=== PATIENT | male | born 1985 | race African-American/Black ===

== ENCOUNTER 2018-08-30 17:59 | Inpatient (IN) | payer MEDICAID ==
[2018-08-30] MEDS ORDERED: Sodium Chloride 0.9% 900 ML IV ONE (18:10)
[2018-08-30] MEDS ORDERED: Sodium Chloride 0.9% 1,000 ML IV ONE ×2 (18:10→18:58)
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
[2018-08-30] MEDS ORDERED: Sodium Chloride 0.9% 1,000 ML IV SCH ×2 (18:15→23:00)
[2018-08-30] MEDS ORDERED: Insulin Regular, Human 100 Units/ML 3 ML Vial IVPUSH ONE (18:57)
[2018-08-30] MEDS ORDERED: Lactated Ringers 1,000 ML IV ONE ×2 (19:32)
[2018-08-30] MEDS ORDERED: Docusate Sodium 100 MG Cap PO PRN (22:09)
[2018-08-30] MEDS ORDERED: Temazepam 15 MG Cap PO PRN (22:09)
[2018-08-30] MEDS ORDERED: Acetaminophen/HYDROcodone 325-5 MG Tab PO PRN (22:09)
[2018-08-30] MEDS ORDERED: Ondansetron 4 MG/2 ML SDV IV PRN (22:09)
[2018-08-30] MEDS ORDERED: HYDROmorphone 1 MG/ML Syringe IVPUSH PRN (22:09)
[2018-08-30] MEDS ORDERED: Polyethylene Glycol 3350 Powder 17 GM Packet PO PRN (22:09)
[2018-08-30] MEDS ORDERED: Metoprolol Tartrate 5 MG/5 ML SDV IVPUSH PRN (22:09)
[2018-08-30] MEDS ORDERED: Albuterol/Ipratropium 3.0-0.5 MG/3 ML Neb Soln NEB PRN (22:09)
[2018-08-30] MEDS ORDERED: Acetaminophen 325 MG Tab PO PRN (22:09)
[2018-08-30] MEDS ORDERED: hydrALAZINE 20 MG/ML SDV IVPUSH PRN (22:09)
[2018-08-30] MEDS ORDERED: Bisacodyl 5 MG Tab PO PRN (22:09)
[2018-08-30] MEDS ORDERED: LORazepam 2 MG/ML SDV IVPUSH PRN (22:09)
[2018-08-30] MEDS ORDERED: Magnesium Oxide 400 MG Tab PO ONE (23:00)
[2018-08-30 23:17] LABS: VITAMIN D,25-HYDROXY 8.1 ng/ml (30.0-100.0)
--- NOTE | 2018-08-30 23:21 | PCM.SN ---
- Free Text/Narrative Note: Patient briefly seen and examined with significant other at bedside. He appears to be comfortable and in no acute distress. His AG so far has improve to 26 from 30. He is alert and awake.
[2018-08-31] MEDS ORDERED: Dextrose 5%-0.9% NaCl 1,000 ML IV SCH (01:15)
[2018-08-31] MEDS ORDERED: Insulin Glarg,Human.Rec.Analog 100 UNIT/ML ML SUBCUT ONE (04:15)
--- NOTE | 2018-08-31 06:15 | CR ---
Chest: Frontal view of the chest was obtained. Comparison: No prior chest x-ray. Heart size and mediastinum are normal. Lungs are clear. Bony structures are grossly intact. Impression: 1. Nothing acute is seen on frontal chest x-ray. Diagnostic code #1
--- NOTE | 2018-08-31 06:31 | PCM.HP ---
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 Screen (YZHOZM=224) Ur Tricyclics Screen (LQGUSH=708) Ur Phencyclidine Scrn (CUTOFF=25) Ur Amphetamine Screen (JPILHE=172) U Methamphetamines Scrn (EDHRBG=808) U Benzodiazepines Scrn (IHBCHU=458) U Cocaine Metab Screen (CALDIG=504) U Marijuana (THC) Screen (CUTOFF=50) Ethyl Alcohol (0.00) gm% Ketones (0.0-0.3) mM 08/31/18 08/31/18 08/31/18 Range/Units 03:05 04:25 05:17 WBC (4.23-9.07) K/mm3 RBC (4.63-6.08) M/mm3 Hgb (13.7-17.5) gm/L Hct (40.1-51.0) % MCV (79.0-92.2) fl MCH (25.7-32.2) pg MCHC (32.2-35.5) g/dl RDW Std Deviation (35.1-43.9) fL Plt Count (163-337) K/mm3 MPV (9.4-12.3) fl Neutrophils % (Manual) (40-60) % Band Neutrophils % (0-10) % Lymphocytes % (Manual) (20-40) % Atypical Lymphs % % Monocytes % (Manual) (2-10) % Eosinophils % (Manual) (0.8-7.0) % Basophils % (Manual) (0.2-1.2) Platelet Estimate RBC Morph Comment Sodium 137 (136-145) mEq/L Potassium 3.2 L (3.5-5.1) mEq/L Chloride 105 (98-107) mEq/L Carbon Dioxide 17 L (21-32) mEq/L Anion Gap 18.2 H (5-15) BUN 11 (7-18) mg/dL Creatinine 1.0 (0.7-1.3) mg/dL Est Cr Clr Drug Dosing 95.70 mL/min Estimated GFR (MDRD) > 60 (>60) mL/min BUN/Creatinine Ratio 11.0 L (14-18) Glucose 208 H (74-106) mg/dL POC Glucose 217 H 166 H (70-105) mg/dL Hemoglobin A1c (4.50-6.20) % Serum Osmolality (280-300) mosm/kg Lactic Acid Calcium 8.7 (8.5-10.1) mg/dL Phosphorus (2.6-4.7) mg/dL Magnesium (1.8-2.4) mg/dl Total Bilirubin (0.2-1.0) mg/dL AST ALT Alkaline Phosphatase (46-116) U/L Troponin I (0.00-0.056) ng/mL C-Reactive Protein (<1.0) mg/dL Total Protein (6.4-8.2) g/dl Albumin (3.4-5.0) g/dl Globulin gm/dL Albumin/Globulin Ratio (1-2) Triglycerides (<150) mg/dL Cholesterol (<200) mg/dL LDL Cholesterol Direct (<100) mg/dL HDL Cholesterol (40-59) mg/dL Lipase (73-393) U/L Vitamin D 25-Hydroxy (30.0-100.0) ng/ml Free T4 (0.76-1.46) ng/dL TSH 3rd Generation (0.358-3.74) uIU/mL Urine Color (Yellow) Urine Appearance (Clear) Urine pH (5.0-8.0) Ur Specific Williamson (1.005-1.030) Urine Protein (Negative) Urine Glucose (UA) (Negative) Urine Ketones (Negative) Urine Occult Blood (Negative) Urine Nitrite (Negative) Urine Bilirubin (Negative) Urine Urobilinogen (0.2-1.0) Ur Leukocyte Esterase (Negative) Urine RBC (0-5) /hpf Urine WBC (0-5) /hpf Ur Epithelial Cells (0-5) /hpf Urine Bacteria (FEW) /hpf Urine Mucus (FEW) /hpf Ur Random Creatinine (30.0-125.0) mg/dL Ur Random Microalbumin (1.3-20.0) mg/L Microalb/Creat Ratio (0-30) mg/g Urine Opiates Screen (SHUQDU=988) Ur Buprenorphine Scrn (CUTOFF=10) Ur Oxycodone Screen (GNO5WD=269) Urine Methadone Screen (LXL9YD=315) Ur Propoxyphene Screen (NBGJAO=274) Ur Barbiturates Screen (FDXHSI=040) Ur Tricyclics Screen (LFYDXF=484) Ur Phencyclidine Scrn (CUTOFF=25) Ur Amphetamine Screen (QIQHJO=331) U Methamphetamines Scrn (IQSYPX=761) U Benzodiazepines Scrn (NEBDGW=161) U Cocaine Metab Screen (VKVBXR=561) U Marijuana (THC) Screen (CUTOFF=50) Ethyl Alcohol (0.00) gm% Ketones (0.0-0.3) mM 08/31/18 Range/Units 06:10 WBC (4.23-9.07) K/mm3 RBC (4.63-6.08) M/mm3 Hgb (13.7-17.5) gm/L Hct (40.1-51.0) % MCV (79.0-92.2) fl MCH (25.7-32.2) pg MCHC (32.2-35.5) g/dl RDW Std Deviation (35.1-43.9) fL Plt Count (163-337) K/mm3 MPV (9.4-12.3) fl Neutrophils % (Manual) (40-60) % Band Neutrophils % (0-10) % Lymphocytes % (Manual) (20-40) % Atypical Lymphs % % Monocytes % (Manual) (2-10) % Eosinophils % (Manual) (0.8-7.0) % Basophils % (Manual) (0.2-1.2) Platelet Estimate RBC Morph Comment Sodium (136-145) mEq/L Potassium (3.5-5.1) mEq/L Chloride (98-107) mEq/L Carbon Dioxide (21-32) mEq/L Anion Gap (5-15) BUN (7-18) mg/dL Creatinine (0.7-1.3) mg/dL Est Cr Clr Drug Dosing mL/min Estimated GFR (MDRD) (>60) mL/min BUN/Creatinine Ratio (14-18) Glucose (74-106) mg/dL POC Glucose 164 H (70-105) mg/dL Hemoglobin A1c (4.50-6.20) % Serum Osmolality (280-300) mosm/kg Lactic Acid Calcium (8.5-10.1) mg/dL Phosphorus (2.6-4.7) mg/dL Magnesium (1.8-2.4) mg/dl Total Bilirubin (0.2-1.0) mg/dL AST ALT Alkaline Phosphatase (46-116) U/L Troponin I (0.00-0.056) ng/mL C-Reactive Protein (<1.0) mg/dL Total Protein (6.4-8.2) g/dl Albumin (3.4-5.0) g/dl Globulin gm/dL Albumin/Globulin Ratio (1-2) Triglycerides (<150) mg/dL Cholesterol (<200) mg/dL LDL Cholesterol Direct (<100) mg/dL HDL Cholesterol (40-59) mg/dL Lipase (73-393) U/L Vitamin D 25-Hydroxy (30.0-100.0) ng/ml Free T4 (0.76-1.46) ng/dL TSH 3rd Generation (0.358-3.74) uIU/mL Urine Color (Yellow) Urine Appearance (Clear) Urine pH (5.0-8.0) Ur Specific Williamson (1.005-1.030) Urine Protein (Negative) Urine Glucose (UA) (Negative) Urine Ketones (Negative) Urine Occult Blood (Negative) Urine Nitrite (Negative) Urine Bilirubin (Negative) Urine Urobilinogen (0.2-1.0) Ur Leukocyte Esterase (Negative) Urine RBC (0-5) /hpf Urine WBC (0-5) /hpf Ur Epithelial Cells (0-5) /hpf Urine Bacteria (FEW) /hpf Urine Mucus (FEW) /hpf Ur Random Creatinine (30.0-125.0) mg/dL Ur Random Microalbumin (1.3-20.0) mg/L Microalb/Creat Ratio (0-30) mg/g Urine Opiates Screen (NSPPTY=053) Ur Buprenorphine Scrn (CUTOFF=10) Ur Oxycodone Screen (HVJ7UR=132) Urine Methadone Screen (QLQ2BV=543) Ur Propoxyphene Screen (BJGVGX=871) Ur Barbiturates Screen (GAKTTE=910) Ur Tricyclics Screen (LQLJWU=799) Ur Phencyclidine Scrn (CUTOFF=25) Ur Amphetamine Screen (IQQQOF=971) U Methamphetamines Scrn (DGUULL=839) U Benzodiazepines Scrn (CRVGZV=470) U Cocaine Metab Screen (RWTORD=910) U Marijuana (THC) Screen (CUTOFF=50) Ethyl Alcohol (0.00) gm% Ketones (0.0-0.3) mM Result Diagrams: 08/30/18 18:25 08/31/18 06:59 - Problem List (1) Ketoacidosis in diabetes mellitus SNOMED Code(s): 063466775 ICD Code: E13.10 - OTH DIABETES MELLITUS WITH KETOACIDOSIS WITHOUT COMA Status: Resolved Priority: High Current Visit: Yes (2) Tobacco use disorder SNOMED Code(s): 646703058 ICD Code: F17.200 - NICOTINE DEPENDENCE, UNSPECIFIED, UNCOMPLICATED Status : Chronic Priority: Medium Current Visit: Yes (3) Chronic alcohol use SNOMED Code(s): 196781 ICD Code: Z72.89 - OTHER PROBLEMS RELATED TO LIFESTYLE Status: Chronic Priority: High Current Visit: Yes (4) 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), managed as type 2 SNOMED Code(s): 045747627 ICD Code: E13.9 - OTHER SPECIFIED DIABETES MELLITUS WITHOUT COMPLICATIONS Status: Acute Priority: High Current Visit: Yes Problem List Initiated/Reviewed/Updated: Yes Orders Last 24hrs: Active Orders 24 hr Category Date Time Status Patient Status [ADT] Routine ADT 08/30/18 21:53 Active Antiembolic Devices [RC] QSHIFT Care 08/30/18 22:10 Active Cardiac Monitoring [RC] CONTINUOUS Care 08/30/18 18:59 Active Glucose [Blood Glucose Check, Bedside] [RC] Q1HR Care 08/30/18 18:57 Active Height and Weight [RC] 04 Care 08/30/18 22:09 Active Intake and Output [RC] 04,16 Care 08/30/18 22:09 Active Oxygen Therapy [RC] PRN Care 08/30/18 22:09 Active RT Aerosol Therapy [RC] ASDIRECTED Care 08/30/18 22:11 Active Up ad Renetta [RC] ASDIRECTED Care 08/30/18 22:09 Active VTE/DVT Education [RC] Care 08/30/18 22:09 Active Consult to Case Management/Medical Center Representative [CONS] Cons 08/30/18 22:09 Active Routine Consult to Diabetic Nurse Specialist [CONS] Routine Cons 08/30/18 22:09 Active Consult to Studio Sales Associate [CONS] Routine Cons 08/30/18 22:09 Active Nothing per Oral Now Diet [DIET] Diet 08/30/18 Dinner Active BASIC METABOLIC PANEL,BMP [CHEM] Routine Lab 08/31/18 07:00 Ordered BLOOD GAS VENOUS [BG] Stat Lab 08/30/18 18:43 Ordered CULTURE BLOOD [BC] Stat Lab 08/30/18 19:34 Received CULTURE BLOOD [BC] Stat Lab 08/30/18 19:43 Received CULTURE URINE [RM] Stat Lab 08/30/18 20:36 Ordered Acetaminophen [Tylenol] Med 08/30/18 22:09 Active 650 mg PO Q4H PRN Acetaminophen/HYDROcodone [[place] 325-5 MG] Med 08/30/18 22:09 Active 1 tab PO Q4H PRN Albuterol/Ipratropium [DuoNeb 3.0-0.5 MG/3 ML] Med 08/30/18 22:09 Active 3 ml NEB Q4H PRN Aspirin Med 08/31/18 09:00 Active 81 mg PO DAILY Bisacodyl [Dulcolax] Med 08/30/18 22:09 Active 5 mg PO DAILY PRN Dextrose 5%-0.9% NaCl [Dextrose 5%-Normal Saline] 1,000 Med 08/31/18 01:15 Active ml IV ASDIRECTED Docusate Sodium [Colace] Med 08/30/18 22:09 Active 100 mg PO BID PRN Docusate Sodium/Sennosides [Senna Plus] Med 08/30/18 22:09 Active 1 tab PO BID PRN HYDROmorphone [Dilaudid] Med 08/30/18 22:09 Active 0.25 mg IVPUSH Q2H PRN Insulin Regular, Human [HumuLIN R] 100 unit Med 08/30/18 23:30 Active Sodium Chloride 0.9% [Normal Saline] 99 ml IV ASDIRECTED LORazepam [Ativan] Med 08/30/18 22:09 Active 2 mg IVPUSH Q4H PRN Lisinopril [Prinivil] Med 08/31/18 09:00 Active 10 mg PO DAILY Metoprolol Tartrate [Lopressor] Med 08/30/18 22:09 Active 5 mg IVPUSH Q4H PRN Nicotine [Habitrol] Med 08/31/18 09:00 Active 21 mg TRDERM DAILY Ondansetron [Zofran] Med 08/30/18 22:09 Active 4 mg IV Q6H PRN Pharmacy to Dose - Magnesium R [Pharmacy to Dose - Med 08/30/18 22:15 Pending Magnesium Replacement] 1 dose .XX ASDIRECTED Pharmacy to Dose - Potassium R [Pharmacy to Dose - Med 08/30/18 22:15 Pending Potassium Replacement] 1 dose .XX ASDIRECTED Polyethylene Glycol 3350 [MiraLAX] Med 08/30/18 22:09 Active 17 gm PO DAILY PRN Remove Patch Med 08/31/18 09:00 Active 1 ea TRDERM DAILY Temazepam [Restoril] Med 08/30/18 22:09 Active 15 mg PO BEDTIME PRN hydrALAZINE [Apresoline] Med 08/30/18 22:09 Active 20 mg IVPUSH Q4H PRN Blood Culture x2 Reflex Set [OM.PC] Stat Oth 08/30/18 18:59 Ordered Sequential Compression Device [OM.PC] Per Unit Routine Oth 08/30/18 22:10 Ordered Resuscitation Status Routine Resus Stat 08/30/18 22:09 Ordered Medication Orders Acetaminophen (Tylenol) 650 mg PO Q4H PRN PRN Reason: Pain (Mild 1-3)/fever Hydrocodone Bitart/Acetaminophen ([place] 325-5 Mg) 1 tab PO Q4H PRN PRN Reason: Pain (moderate 4-6) Albuterol/Ipratropium (Duoneb 3.0-0.5 Mg/3 Ml) 3 ml NEB Q4H PRN PRN Reason: Shortness Of Breath/wheezing Aspirin (Aspirin) 81 mg PO DAILY JUAN Bisacodyl (Dulcolax) 5 mg PO DAILY PRN PRN Reason: Constipation Docusate Sodium (Colace) 100 mg PO BID PRN PRN Reason: Constipation Hydralazine HCl (Apresoline) 20 mg IVPUSH Q4H PRN PRN Reason: Hypertension Hydromorphone HCl (Dilaudid) 0.25 mg IVPUSH Q2H PRN PRN Reason: Pain (severe 7-10) Insulin Human Regular 100 unit (/ Sodium Chloride) 100 mls @ 6 mls/hr IV ASDIRECTED [facility]; Protocol Last Admin: 08/30/18 23:00 Dose: 6 units/hr, 6 mls/hr Dextrose/Sodium Chloride (Dextrose 5%-Normal Saline) 1,000 mls @ 150 mls/hr IV ASDIRECTED [facility] Last Admin: 08/31/18 01:23 Dose: 150 mls/hr Lisinopril (Prinivil) 10 mg PO DAILY JUAN Lorazepam (Ativan) 2 mg IVPUSH Q4H PRN PRN Reason: Seizures Magnesium Sulfate (Pharmacy To Dose - Magnesium Replacement) 1 dose .XX ASDIRECTED [facility] Metoprolol Tartrate (Lopressor) 5 mg IVPUSH Q4H PRN PRN Reason: Tachycardia Miscellaneous Information (Remove Patch) 1 ea TRDERM DAILY [facility] Nicotine (Habitrol) 21 mg TRDERM DAILY [facility] Ondansetron HCl (Zofran) 4 mg IV Q6H PRN PRN Reason: Nausea/Vomiting Polyethylene Glycol (Miralax) 17 gm PO DAILY PRN PRN Reason: Constipation Potassium Chloride (Pharmacy To Dose - Potassium Replacement) 1 dose .XX ASDIRECTED [facility] Senna/Docusate Sodium (Senna Plus) 1 tab PO BID PRN PRN Reason: Constipation Temazepam (Restoril) 15 mg PO BEDTIME PRN PRN Reason: Sleep Last Admin: 08/30/18 23:18 Dose: 15 mg Assessment/Plan Comment:: I/P: Acute: VINAY/New onset diabetic -Presents to ED after being seen at [facility] for leg cramps, low back pain, polydipsia, polyuria. -No known personal or family history of diabetes -Glucose 707 in ED -Urine ketones 11.51 -Given multiple fluid boluses and 9 unites insulin -Started on insulin drip -A1C 9.0 -Serum osmolality 326. -Urine random creatinine 23.3; Urine random microalbumin 306.6; Microalbumin/ creatinine ratio 1315.8 -Lipid panel: Triglycerides 1070, total cholesterol 256, LDL 79, HDL 33. -TSH 0.779. Free T4 0.91 -IV fluids as ordered -NPO until gap closes -IV insulin drip as ordered per protocol -clinical unit educator consult -Studio Sales Associate consult -Blood glucose checks as ordered -Start lisinopril 10mg daily -Start ASA 81mg daily -Serial BMPs as directed Vitamin D Deficiency -Vitamin D 8.1 -Supplement Chronic ETOH use -Reports drinking 20 fireball shots per night -Counseled on importance of decreasing consumption Chronic tobacco use -Reports 1 PPD cigarette use -Nicotine patches -Cessation counseling Chronic: None Plan: Admit to ICU-> downgrade to [facility] He is ambulatory so hold off PT/OT for now Other orders as above Routine AM labs CM/SW for discharge planning DVT prophylaxis: VTE 1, SCDs and ambulate Code status: Full code; PCP: None - will need to establish locally
[2018-08-31] MEDS: Potassium Chloride 20 MEQ Tab.ER PO SCH ×2 (08:25→11:44)
[2018-08-31] MEDS ORDERED: Lisinopril 10 MG Tab PO SCH (09:00)
[2018-08-31] MEDS ORDERED: Cholecalciferol (Vitamin D3) 5,000 UNIT Tab PO SCH (09:00)
[2018-08-31] MEDS ORDERED: Aspirin 81 MG Tab.Chew PO SCH (09:00)
[2018-08-31] MEDS ORDERED: Rosuvastatin 10 MG Tab PO SCH (09:00)
[2018-08-31] MEDS ORDERED: Nicotine 21 MG/24 Hr Patch TRDERM SCH (09:00)
[2018-08-31] MEDS ORDERED: Insulin Glarg,Human.Rec.Analog 100 UNIT/ML ML SUBCUT SCH ×4 (09:01→21:00)
--- NOTE | 2018-08-31 09:46 | PCM.DCSUM1 ---
Discharge Summary - Hospital Course HPI Initial Comments: Darius Alfaro is a 32yo male who presented to our ED after being evaluated at [facility] for leg cramps, low back pain, polydipsia, and polyuria. Symptoms have been present for about 3 weeks and he reports he has been feeling dehydrated and can drink enough fluids. He has no personal or familial history of diabetes. He reports he drinks fireball 20 shots every evening. Denies any other past medical history. He is not taking any medications and denies any other past surgical history. Reports he smokes 1 pack per day and denies any recreational drug use. He has no PCP locally. Reports he has had muscle cramps in his lower legs and does take Advil 4 mg twice a day. Denies any pain or swelling in the ED. 7 out of 10 back pain which he states is dull and achy. This will wax and wane with intensity. He also reports some lower abdominal cramping but denies any dark tarry stools, bloody stools, or diarrhea. In the ED temperature was 98.9 Fahrenheit. Pulse 128. Respirations 18. Blood pressure 158/117. Pulse ox 99%. Labs are obtained: WBC is elevated at 13.74. Hemoglobin 17.4. Hematocrit 47.5. He is normocytic. Platelets are high at 392 ,000. Neutrophils were elevated at 65%. There is no bandemia. Sodium was low at 127. Potassium high at 5.3. Carbon dioxide low at 15. Anion gap is very high at 3.3. BUN is 24. Creatinine 1.4. EGFR is greater than 60. Glucose is very high at 707. Serum osmolality is high at 326. Calcium was high at 11.6. Magnesium is high at 2.6. Alkaline phosphatase is high at 159. Troponin is negative at less than 0.017. CRP is 0.4. Protein is high at 10.2. Albumin 4.8. Ketones are 11.51. A1c is 9.0. Phosphorus is high at 7.0. Ethanol call 0.00. UA is negative however 2+ protein, 2+ glucose, 4+ ketones, 1+ occult blood, and 10-20 WBCs is noted. Urine drug screen is negative. He is given multiple LR fluid boluses and 9 units of IV push insulin. Chest x-rays obtained and shows nothing acute. EKG is obtained showing sinus tachycardia rate of 114 with a normal VA interval and QTC. There is no ST changes noted. Corrected anion gap was noted to be 23 mg/L. He has no past medical history. He is a full code. He has no PCP. He subsequently admitted to the ICU for diabetic ketoacidosis. 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), managed as type 2 SNOMED Code(s): 579184391 ICD Code: E13.9 - OTHER SPECIFIED DIABETES MELLITUS WITHOUT COMPLICATIONS Status: Acute Priority: High (4) Hyperlipemia SNOMED Code(s): 35631446 ICD Code: E78.5 - HYPERLIPIDEMIA, UNSPECIFIED Status: Acute Priority: High Qualifiers: Hyperlipidemia type: unspecified Qualified Code(s): E78.5 - Hyperlipidemia , unspecified - Patient Summary/Data Consults: Consultations 08/30/18 22:09 Consult to Case Management/Lozenge Dough Mixer [CONS] Routine Consult to Diabetic Nurse Specialist [CONS] Routine Consult to Tax Attorney [CONS] Routine Labs Pending at D/C: None Recommended Follow-up Testing/Procedures: Follow-up with PCP within 7-10 days of discharge Hospital Course: I/P: Acute: VINAY/New onset diabetic -Presents to ED after being seen at [facility] for leg cramps, low back pain, polydipsia, polyuria. -No known personal or family history of diabetes -Glucose 707 in ED -Urine ketones 11.51 -Given multiple fluid boluses and 9 unites insulin -Started on insulin drip -A1C 9.0 -Serum osmolality 326. -Urine random creatinine 23.3; Urine random microalbumin 306.6; Microalbumin/ creatinine ratio 1315.8 -Lipid panel: Triglycerides 1070, total cholesterol 256, LDL 79, HDL 33. -TSH 0.779. Free T4 0.91 -IV fluids as ordered -NPO until gap closes -IV insulin drip as ordered per protocol -certified adapted physical educator consult -Tax Attorney consult -Blood glucose checks as ordered -Start lisinopril 10mg daily -Start ASA 81mg daily -Serial BMPs as directed Vitamin D Deficiency -Vitamin D 8.1 -Supplement Chronic ETOH use -Reports drinking 20 fireball shots per night -Counseled on importance of decreasing consumption Chronic tobacco use -Reports 1 PPD cigarette use -Nicotine patches -Cessation counseling Chronic: None Plan: Admit to ICU-> downgrade to [facility] He is ambulatory so hold off PT/OT for now Other orders as above Routine AM labs CM/SW for discharge planning DVT prophylaxis: VTE 1, SCDs and ambulate Code status: Full code; PCP: None - will need to establish locally Darius was admitted to the ICU with new onset diabetes/L ADA. Glucose was 707 in the ED and urine ketones were 11.5 one he was given insulin along with multiple fluid boluses. He did him over with an insulin drip and this was weaned down. Serum osmolality was 326 and A1c was found to be 9.0. He was noted to have random urine creatinine of 23.3 and a urine random microalbumin of 306. TSH was normal. He has very high triglycerides at 1070, however his LDL was normal at 79. LDL is low at 33. Total cholesterol was 256. Anion gap did close and he was started on normal foods. He was able tolerate this well. He was downgraded to med/surg status. He did see our music educator was able to assist him with finding some medications. He also saw our dietitian. We discussed lifestyle changes and he is adamant that he is going to quit drinking. He smokes 1 pack per day of cigarettes but refused tobacco cessation products on discharge. We did discuss that there are options available should he change his mind including a primary care provider and and ND quits. His vitamin D was very low at 8.1 and this was supplemented. He was feeling pretty good prior to discharge. He was advised to establish with a PCP and follow up within one week. He also reportedly has liver issues and should follow up with GI as needed for that. He was started by Dr. Ranada on 81 mg by mouth aspirin daily, 5000 units by mouth vitamin D3 at bedtime, Lantus 25 units subcutaneous twice a day, sliding scale Humalog 4 times a day, 20 mg by mouth daily lisinopril, and 20 mg by mouth daily Crestor. He was instructed to take his blood sugar 4 times a day. He was advised to contact the PCP, walking clinic, or return to our ED should symptoms return or worsen. He will be discharged today. - Patient Instructions Diet: Heart Healthy Diet, Usual Diet as Tolerated, Diabetic Diet, Weight Loss Diet Activity: As Tolerated Driving: May Drive Today Showering/Bathing: May Shower Notify Provider of: Fever, Increased Pain, Nausea and/or Vomiting Other/Special Instructions: - Please take all new medications as directed. - Resume all home medications and routine home activities as tolerated. - Recommend you follow dietary and automotive designer's instructions. - Practice life style modications and stay hydrated. - Cut down alcohol intake. - Check finger glucose 4x/day and show log on follow up appointment with PCP. - Recommend you see GI for further eval of your liver disease. - Call or follow up with your PCP for any questions or concerns after discharge. - Follow up with your PCP in 1 week. - Come back or seek immediate care should your symptoms persist or get worse - Discharge Plan *PRESCRIPTION DRUG MONITORING PROGRAM REVIEWED*: Not Applicable *COPY OF PRESCRIPTION DRUG MONITORING REPORT IN PATIENT ANNIE: Not Applicable Prescriptions/Med Rec: Aspirin 81 mg PO DAILY #30 tab.chew Cholecalciferol (Vitamin D3) [Vitamin D3] 5,000 unit PO BEDTIME #30 tablet Insulin Glargine,Hum.Rec.Anlog [Lantus Solostar] 25 unit SQ BID #1 ml Insulin Lispro [Humalog] See Protocol SQ QID PRN #1 ml PRN Reason: VINAY-DM2 Lisinopril 20 mg PO DAILY #30 tablet Rosuvastatin [Crestor] 20 mg PO DAILY #60 tab Home Medications: Home Meds Aspirin 81 mg PO DAILY #30 tab.chew 08/31/18 [Rx] Cholecalciferol (Vitamin D3) [Vitamin D3] 5,000 unit PO BEDTIME #30 tablet 08/31 [Rx] Insulin Glargine,Hum.Rec.Anlog [Lantus Solostar] 25 unit SQ BID #1 ml 08/31/18 [ Rx] Insulin Lispro [Humalog] See Protocol SQ QID PRN #1 ml 08/31/18 [Rx] Lisinopril 20 mg PO DAILY #30 tablet 08/31/18 [Rx] Rosuvastatin [Crestor] 20 mg PO DAILY #60 tab 08/31/18 [Rx] Oxygen Therapy Mode: Room Air Patient Handouts: Insulin Storage and Care, Insulin Treatment for Diabetes, Diabetes Mellitus and Sick Day Management, How to Avoid Diabetes Mellitus Problems, Steps to Quit Smoking Referrals: PCP,None [Primary Care Provider] - - Discharge Summary/Plan Comment DC Time >30 min.: Yes (45 min) - General Info Date of Service: 08/31/18 Admission Dx/Problem (Free Text: Admission Diagnosis/Problem Admission Diagnosis/Problem Diabetic ketoacidosis Functional Status: Reports: Pain Controlled, Tolerating Diet, Ambulating, Urinating. Denies: New Symptoms - Review of Systems General: Reports: No Symptoms. Denies: Fever, Weakness, Fatigue, Malaise, Chills HEENT: Reports: No Symptoms. Denies: Headaches, Sore Throat Pulmonary: Reports: No Symptoms. Denies: Shortness of Breath, Pleuritic Chest Pain, Cough, Sputum, Wheezing Cardiovascular: Reports: No Symptoms. Denies: Chest Pain, Palpitations, Dyspnea on Exertion, Orthopnea Gastrointestinal: Reports: No Symptoms, Abdominal Pain (mild epigastric and lower quadrant ). Denies: Constipation, Diarrhea, Nausea, Vomiting Genitourinary: Reports: No Symptoms. Denies: Pain Musculoskeletal: Reports: No Symptoms Skin: Reports: No Symptoms Neurological: Reports: No Symptoms. Denies: Confusion Psychiatric: Reports: No Symptoms - Patient Data Vitals - Most Recent: Last Vital Signs Temp 97.7 F 08/31/18 08:00 Pulse 97 08/31/18 04:00 Resp 18 08/31/18 08:00 BP 136/102 H 08/31/18 08:25 Pulse Ox 96 08/31/18 08:00 Weight - Most Recent: 190 lb 14.4 oz I&O - Last 24 hours: Intake & Output 08/30/18 08/31/18 08/31/18 22:59 06:59 14:59 Intake Total 7519 Output Total 700 Balance 6819 Lab Results - Last 24 hrs: Laboratory Results - last 24 hr 03/08/30/18 08/30/18 Range/Units 18:25 18:25 18:25 WBC 13.74 H (4.23-9.07) K/mm3 RBC 5.74 (4.63-6.08) M/mm3 Hgb 17.4 (13.7-17.5) gm/L Hct 47.5 (40.1-51.0) % MCV 82.8 (79.0-92.2) fl MCH 30.3 (25.7-32.2) pg MCHC 36.6 H (32.2-35.5) g/dl RDW Std Deviation 39.0 (35.1-43.9) fL Plt Count 392 H (163-337) K/mm3 MPV 10.5 (9.4-12.3) fl Neutrophils % (Manual) 65 H (40-60) % Band Neutrophils % 0 (0-10) % Lymphocytes % (Manual) 30 (20-40) % Atypical Lymphs % 0 % Monocytes % (Manual) 5 (2-10) % Eosinophils % (Manual) 0 L (0.8-7.0) % Basophils % (Manual) 0 L (0.2-1.2) Platelet Estimate Adequate RBC Morph Comment Normal Sodium 127 L (136-145) mEq/L Potassium 5.3 H (3.5-5.1) mEq/L Chloride 87 L (98-107) mEq/L Carbon Dioxide 15 L (21-32) mEq/L Anion Gap 30.3 H (5-15) BUN 24 H (7-18) mg/dL Creatinine 1.4 H (0.7-1.3) mg/dL Est Cr Clr Drug Dosing 70.82 mL/min Estimated GFR (MDRD) > 60 (>60) mL/min BUN/Creatinine Ratio 17.1 (14-18) Glucose 707 H* (74-106) mg/dL POC Glucose (70-105) mg/dL Hemoglobin A1c (4.50-6.20) % Serum Osmolality 326 H (280-300) mosm/kg Lactic Acid Calcium 11.6 H (8.5-10.1) mg/dL Phosphorus (2.6-4.7) mg/dL Magnesium 2.6 H (1.8-2.4) mg/dl Total Bilirubin 0.9 (0.2-1.0) mg/dL AST TNP ALT TNP Alkaline Phosphatase 159 H (46-116) U/L Troponin I < 0.017 (0.00-0.056) ng/mL C-Reactive Protein 0.4 (<1.0) mg/dL Total Protein 10.2 H (6.4-8.2) g/dl Albumin 4.8 (3.4-5.0) g/dl Globulin 5.4 gm/dL Albumin/Globulin Ratio 0.9 L (1-2) Triglycerides (<150) mg/dL Cholesterol (<200) mg/dL LDL Cholesterol Direct (<100) mg/dL HDL Cholesterol (40-59) mg/dL Lipase (73-393) U/L Vitamin D 25-Hydroxy (30.0-100.0) ng/ml Free T4 (0.76-1.46) ng/dL TSH 3rd Generation (0.358-3.74) uIU/mL Urine Color (Yellow) Urine Appearance (Clear) Urine pH (5.0-8.0) Ur Specific [place] (1.005-1.030) Urine Protein (Negative) Urine Glucose (UA) (Negative) Urine Ketones (Negative) Urine Occult Blood (Negative) Urine Nitrite (Negative) Urine Bilirubin (Negative) Urine Urobilinogen (0.2-1.0) Ur Leukocyte Esterase (Negative) Urine RBC (0-5) /hpf Urine WBC (0-5) /hpf Ur Epithelial Cells (0-5) /hpf Urine Bacteria (FEW) /hpf Urine Mucus (FEW) /hpf Ur Random Creatinine (30.0-125.0) mg/dL Ur Random Microalbumin (1.3-20.0) mg/L Microalb/Creat Ratio (0-30) mg/g Urine Opiates Screen (ETVSMK=454) Ur Buprenorphine Scrn (CUTOFF=10) Ur Oxycodone Screen (KQE6TS=613) Urine Methadone Screen (MKM9VM=709) Ur Propoxyphene Screen (LKHYCR=689) Ur Barbiturates Screen (ZKJAEG=102) Ur Tricyclics Screen (KGCLNF=244) Ur Phencyclidine Scrn (CUTOFF=25) Ur Amphetamine Screen (FOETUQ=486) U Methamphetamines Scrn (SHOSNK=917) U Benzodiazepines Scrn (DURDSX=461) U Cocaine Metab Screen (OIHUZQ=982) U Marijuana (THC) Screen (CUTOFF=50) Ethyl Alcohol (0.00) gm% Ketones 11.51 (0.0-0.3) mM 08/30/18 08/30/18 08/30/18 Range/Units 18:25 18:25 18:25 WBC (4.23-9.07) K/mm3 RBC (4.63-6.08) M/mm3 Hgb (13.7-17.5) gm/L Hct (40.1-51.0) % MCV (79.0-92.2) fl MCH (25.7-32.2) pg MCHC (32.2-35.5) g/dl RDW Std Deviation (35.1-43.9) fL Plt Count (163-337) K/mm3 MPV (9.4-12.3) fl Neutrophils % (Manual) (40-60) % Band Neutrophils % (0-10) % Lymphocytes % (Manual) (20-40) % Atypical Lymphs % % Monocytes % (Manual) (2-10) % Eosinophils % (Manual) (0.8-7.0) % Basophils % (Manual) (0.2-1.2) Platelet Estimate RBC Morph Comment Sodium (136-145) mEq/L Potassium (3.5-5.1) mEq/L Chloride (98-107) mEq/L Carbon Dioxide (21-32) mEq/L Anion Gap (5-15) BUN (7-18) mg/dL Creatinine (0.7-1.3) mg/dL Est Cr Clr Drug Dosing mL/min Estimated GFR (MDRD) (>60) mL/min BUN/Creatinine Ratio (14-18) Glucose (74-106) mg/dL POC Glucose (70-105) mg/dL Hemoglobin A1c 9.00 H (4.50-6.20) % Serum Osmolality (280-300) mosm/kg Lactic Acid Calcium (8.5-10.1) mg/dL Phosphorus 7.0 H (2.6-4.7) mg/dL Magnesium (1.8-2.4) mg/dl Total Bilirubin (0.2-1.0) mg/dL AST ALT Alkaline Phosphatase (46-116) U/L Troponin I (0.00-0.056) ng/mL C-Reactive Protein (<1.0) mg/dL Total Protein (6.4-8.2) g/dl Albumin (3.4-5.0) g/dl Globulin gm/dL Albumin/Globulin Ratio (1-2) Triglycerides (<150) mg/dL Cholesterol (<200) mg/dL LDL Cholesterol Direct (<100) mg/dL HDL Cholesterol (40-59) mg/dL Lipase 496 H (73-393) U/L Vitamin D 25-Hydroxy (30.0-100.0) ng/ml Free T4 (0.76-1.46) ng/dL TSH 3rd Generation (0.358-3.74) uIU/mL Urine Color (Yellow) Urine Appearance (Clear) Urine pH (5.0-8.0) Ur Specific [place] (1.005-1.030) Urine Protein (Negative) Urine Glucose (UA) (Negative) Urine Ketones (Negative) Urine Occult Blood (Negative) Urine Nitrite (Negative) Urine Bilirubin (Negative) Urine Urobilinogen (0.2-1.0) Ur Leukocyte Esterase (Negative) Urine RBC (0-5) /hpf Urine WBC (0-5) /hpf Ur Epithelial Cells (0-5) /hpf Urine Bacteria (FEW) /hpf Urine Mucus (FEW) /hpf Ur Random Creatinine (30.0-125.0) mg/dL Ur Random Microalbumin (1.3-20.0) mg/L Microalb/Creat Ratio (0-30) mg/g Urine Opiates Screen (XVQPFJ=074) Ur Buprenorphine Scrn (CUTOFF=10) Ur Oxycodone Screen (PCR8OM=916) Urine Methadone Screen (PVX1CQ=344) Ur Propoxyphene Screen (ARNTBF=448) Ur Barbiturates Screen (UGCTEJ=658) Ur Tricyclics Screen (SZHLBG=612) Ur Phencyclidine Scrn (CUTOFF=25) Ur Amphetamine Screen (YSYDUG=386) U Methamphetamines Scrn (VSNFTO=267) U Benzodiazepines Scrn (CMNWHO=217) U Cocaine Metab Screen (ENCSVW=026) U Marijuana (THC) Screen (CUTOFF=50) Ethyl Alcohol (0.00) gm% Ketones (0.0-0.3) mM 08/30/18 08/30/18 08/30/18 Range/Units 18:25 19:05 19:05 WBC (4.23-9.07) K/mm3 RBC (4.63-6.08) M/mm3 Hgb (13.7-17.5) gm/L Hct (40.1-51.0) % MCV (79.0-92.2) fl MCH (25.7-32.2) pg MCHC (32.2-35.5) g/dl RDW Std Deviation (35.1-43.9) fL Plt Count (163-337) K/mm3 MPV (9.4-12.3) fl Neutrophils % (Manual) (40-60) % Band Neutrophils % (0-10) % Lymphocytes % (Manual) (20-40) % Atypical Lymphs % % Monocytes % (Manual) (2-10) % Eosinophils % (Manual) (0.8-7.0) % Basophils % (Manual) (0.2-1.2) Platelet Estimate RBC Morph Comment Sodium (136-145) mEq/L Potassium (3.5-5.1) mEq/L Chloride (98-107) mEq/L Carbon Dioxide (21-32) mEq/L Anion Gap (5-15) BUN (7-18) mg/dL Creatinine (0.7-1.3) mg/dL Est Cr Clr Drug Dosing mL/min Estimated GFR (MDRD) (>60) mL/min BUN/Creatinine Ratio (14-18) Glucose (74-106) mg/dL POC Glucose (70-105) mg/dL Hemoglobin A1c (4.50-6.20) % Serum Osmolality (280-300) mosm/kg Lactic Acid Calcium (8.5-10.1) mg/dL Phosphorus (2.6-4.7) mg/dL Magnesium (1.8-2.4) mg/dl Total Bilirubin (0.2-1.0) mg/dL AST ALT Alkaline Phosphatase (46-116) U/L Troponin I (0.00-0.056) ng/mL C-Reactive Protein (<1.0) mg/dL Total Protein (6.4-8.2) g/dl Albumin (3.4-5.0) g/dl Globulin gm/dL Albumin/Globulin Ratio (1-2) Triglycerides (<150) mg/dL Cholesterol (<200) mg/dL LDL Cholesterol Direct (<100) mg/dL HDL Cholesterol (40-59) mg/dL Lipase (73-393) U/L Vitamin D 25-Hydroxy (30.0-100.0) ng/ml Free T4 (0.76-1.46) ng/dL TSH 3rd Generation (0.358-3.74) uIU/mL Urine Color Light yellow (Yellow) Urine Appearance Clear (Clear) Urine pH 5.5 (5.0-8.0) Ur Specific [place] 1.025 (1.005-1.030) Urine Protein 2+ H (Negative) Urine Glucose (UA) 2+ H (Negative) Urine Ketones 4+ H (Negative) Urine Occult Blood 1+ H (Negative) Urine Nitrite Negative (Negative) Urine Bilirubin Negative (Negative) Urine Urobilinogen 0.2 (0.2-1.0) Ur Leukocyte Esterase Negative (Negative) Urine RBC 0-5 (0-5) /hpf Urine WBC 10-20 H (0-5) /hpf Ur Epithelial Cells 0-5 (0-5) /hpf Urine Bacteria Few (FEW) /hpf Urine Mucus Few (FEW) /hpf Ur Random Creatinine (30.0-125.0) mg/dL Ur Random Microalbumin (1.3-20.0) mg/L Microalb/Creat Ratio (0-30) mg/g Urine Opiates Screen Negative (MIWMSH=970) Ur Buprenorphine Scrn Negative (CUTOFF=10) Ur Oxycodone Screen Negative (UDF0SU=363) Urine Methadone Screen Negative (NVX4WQ=376) Ur Propoxyphene Screen Negative (HSCHJD=383) Ur Barbiturates Screen Negative (HNFEZJ=430) Ur Tricyclics Screen Negative (YHGQEY=829) Ur Phencyclidine Scrn Negative (CUTOFF=25) Ur Amphetamine Screen Negative (MQSFQX=127) U Methamphetamines Scrn Negative (XSBTNO=849) U Benzodiazepines Scrn Negative (IERYZP=025) U Cocaine Metab Screen Negative (GSHIDA=171) U Marijuana (THC) Screen Negative (CUTOFF=50) Ethyl Alcohol 0.00 (0.00) gm% Ketones (0.0-0.3) mM 08/30/18 08/30/18 08/30/18 Range/Units 19:05 19:43 20:15 WBC (4.23-9.07) K/mm3 RBC (4.63-6.08) M/mm3 Hgb (13.7-17.5) gm/L Hct (40.1-51.0) % MCV (79.0-92.2) fl MCH (25.7-32.2) pg MCHC (32.2-35.5) g/dl RDW Std Deviation (35.1-43.9) fL Plt Count (163-337) K/mm3 MPV (9.4-12.3) fl Neutrophils % (Manual) (40-60) % Band Neutrophils % (0-10) % Lymphocytes % (Manual) (20-40) % Atypical Lymphs % % Monocytes % (Manual) (2-10) % Eosinophils % (Manual) (0.8-7.0) % Basophils % (Manual) (0.2-1.2) Platelet Estimate RBC Morph Comment Sodium (136-145) mEq/L Potassium (3.5-5.1) mEq/L Chloride (98-107) mEq/L Carbon Dioxide (21-32) mEq/L Anion Gap (5-15) BUN (7-18) mg/dL Creatinine (0.7-1.3) mg/dL Est Cr Clr Drug Dosing mL/min Estimated GFR (MDRD) (>60) mL/min BUN/Creatinine Ratio (14-18) Glucose 409 H (74-106) mg/dL POC Glucose (70-105) mg/dL Hemoglobin A1c (4.50-6.20) % Serum Osmolality (280-300) mosm/kg Lactic Acid TNP Calcium (8.5-10.1) mg/dL Phosphorus (2.6-4.7) mg/dL Magnesium (1.8-2.4) mg/dl Total Bilirubin (0.2-1.0) mg/dL AST ALT Alkaline Phosphatase (46-116) U/L Troponin I (0.00-0.056) ng/mL C-Reactive Protein (<1.0) mg/dL Total Protein (6.4-8.2) g/dl Albumin (3.4-5.0) g/dl Globulin gm/dL Albumin/Globulin Ratio (1-2) Triglycerides (<150) mg/dL Cholesterol (<200) mg/dL LDL Cholesterol Direct (<100) mg/dL HDL Cholesterol (40-59) mg/dL Lipase (73-393) U/L Vitamin D 25-Hydroxy (30.0-100.0) ng/ml Free T4 (0.76-1.46) ng/dL TSH 3rd Generation (0.358-3.74) uIU/mL Urine Color (Yellow) Urine Appearance (Clear) Urine pH (5.0-8.0) Ur Specific [place] (1.005-1.030) Urine Protein (Negative) Urine Glucose (UA) (Negative) Urine Ketones (Negative) Urine Occult Blood (Negative) Urine Nitrite (Negative) Urine Bilirubin (Negative) Urine Urobilinogen (0.2-1.0) Ur Leukocyte Esterase (Negative) Urine RBC (0-5) /hpf Urine WBC (0-5) /hpf Ur Epithelial Cells (0-5) /hpf Urine Bacteria (FEW) /hpf Urine Mucus (FEW) /hpf Ur Random Creatinine 23.3 L (30.0-125.0) mg/dL Ur Random Microalbumin 306.6 H (1.3-20.0) mg/L Microalb/Creat Ratio 1315.8 H (0-30) mg/g Urine Opiates Screen (WBBNTD=633) Ur Buprenorphine Scrn (CUTOFF=10) Ur Oxycodone Screen (DKF2XT=777) Urine Methadone Screen (DJL3WS=531) Ur Propoxyphene Screen (NYXWBU=705) Ur Barbiturates Screen (ZINIHI=984) Ur Tricyclics Screen (AEDJKE=315) Ur Phencyclidine Scrn (CUTOFF=25) Ur Amphetamine Screen (RMOMET=896) U Methamphetamines Scrn (RXESEP=437) U Benzodiazepines Scrn (YRMQJA=768) U Cocaine Metab Screen (PIWQSC=441) U Marijuana (THC) Screen (CUTOFF=50) Ethyl Alcohol (0.00) gm% Ketones (0.0-0.3) mM 08/30/18 08/30/18 08/30/18 Range/Units 21:17 21:40 22:25 WBC (4.23-9.07) K/mm3 RBC (4.63-6.08) M/mm3 Hgb (13.7-17.5) gm/L Hct (40.1-51.0) % MCV (79.0-92.2) fl MCH (25.7-32.2) pg MCHC (32.2-35.5) g/dl RDW Std Deviation (35.1-43.9) fL Plt Count (163-337) K/mm3 MPV (9.4-12.3) fl Neutrophils % (Manual) (40-60) % Band Neutrophils % (0-10) % Lymphocytes % (Manual) (20-40) % Atypical Lymphs % % Monocytes % (Manual) (2-10) % Eosinophils % (Manual) (0.8-7.0) % Basophils % (Manual) (0.2-1.2) Platelet Estimate RBC Morph Comment Sodium 135 L 136 (136-145) mEq/L Potassium 4.3 4.2 (3.5-5.1) mEq/L Chloride 101 101 (98-107) mEq/L Carbon Dioxide 12 L 14 L (21-32) mEq/L Anion Gap 26.3 H 25.2 H (5-15) BUN 18 17 (7-18) mg/dL Creatinine 1.1 1.1 (0.7-1.3) mg/dL Est Cr Clr Drug Dosing 90.14 87.00 mL/min Estimated GFR (MDRD) > 60 > 60 (>60) mL/min BUN/Creatinine Ratio 16.4 15.5 (14-18) Glucose 369 H 358 H (74-106) mg/dL POC Glucose 390 H (70-105) mg/dL Hemoglobin A1c (4.50-6.20) % Serum Osmolality (280-300) mosm/kg Lactic Acid Calcium 9.1 9.3 (8.5-10.1) mg/dL Phosphorus (2.6-4.7) mg/dL Magnesium 1.9 1.9 (1.8-2.4) mg/dl Total Bilirubin 0.6 (0.2-1.0) mg/dL AST TNP ALT TNP Alkaline Phosphatase 113 (46-116) U/L Troponin I (0.00-0.056) ng/mL C-Reactive Protein (<1.0) mg/dL Total Protein 7.3 (6.4-8.2) g/dl Albumin 3.5 (3.4-5.0) g/dl Globulin 3.8 gm/dL Albumin/Globulin Ratio 0.9 L (1-2) Triglycerides (<150) mg/dL Cholesterol (<200) mg/dL LDL Cholesterol Direct (<100) mg/dL HDL Cholesterol (40-59) mg/dL Lipase (73-393) U/L Vitamin D 25-Hydroxy 8.1 L (30.0-100.0) ng/ml Free T4 (0.76-1.46) ng/dL TSH 3rd Generation (0.358-3.74) uIU/mL Urine Color (Yellow) Urine Appearance (Clear) Urine pH (5.0-8.0) Ur Specific [place] (1.005-1.030) Urine Protein (Negative) Urine Glucose (UA) (Negative) Urine Ketones (Negative) Urine Occult Blood (Negative) Urine Nitrite (Negative) Urine Bilirubin (Negative) Urine Urobilinogen (0.2-1.0) Ur Leukocyte Esterase (Negative) Urine RBC (0-5) /hpf Urine WBC (0-5) /hpf Ur Epithelial Cells (0-5) /hpf Urine Bacteria (FEW) /hpf Urine Mucus (FEW) /hpf Ur Random Creatinine (30.0-125.0) mg/dL Ur Random Microalbumin (1.3-20.0) mg/L Microalb/Creat Ratio (0-30) mg/g Urine Opiates Screen (INQWJW=340) Ur Buprenorphine Scrn (CUTOFF=10) Ur Oxycodone Screen (LUI8DK=718) Urine Methadone Screen (HRP3RH=656) Ur Propoxyphene Screen (JNJIYG=303) Ur Barbiturates Screen (WZIIYA=883) Ur Tricyclics Screen (AZZYZP=790) Ur Phencyclidine Scrn (CUTOFF=25) Ur Amphetamine Screen (TGSUFB=054) U Methamphetamines Scrn (RMNQTH=456) U Benzodiazepines Scrn (KXLDFQ=905) U Cocaine Metab Screen (JORJIX=190) U Marijuana (THC) Screen (CUTOFF=50) Ethyl Alcohol (0.00) gm% Ketones (0.0-0.3) mM 08/30/18 08/30/18 08/31/18 Range/Units 22:25 23:10 00:07 WBC (4.23-9.07) K/mm3 RBC (4.63-6.08) M/mm3 Hgb (13.7-17.5) gm/L Hct (40.1-51.0) % MCV (79.0-92.2) fl MCH (25.7-32.2) pg MCHC (32.2-35.5) g/dl RDW Std Deviation (35.1-43.9) fL Plt Count (163-337) K/mm3 MPV (9.4-12.3) fl Neutrophils % (Manual) (40-60) % Band Neutrophils % (0-10) % Lymphocytes % (Manual) (20-40) % Atypical Lymphs % % Monocytes % (Manual) (2-10) % Eosinophils % (Manual) (0.8-7.0) % Basophils % (Manual) (0.2-1.2) Platelet Estimate RBC Morph Comment Sodium (136-145) mEq/L Potassium (3.5-5.1) mEq/L Chloride (98-107) mEq/L Carbon Dioxide (21-32) mEq/L Anion Gap (5-15) BUN (7-18) mg/dL Creatinine (0.7-1.3) mg/dL Est Cr Clr Drug Dosing mL/min Estimated GFR (MDRD) (>60) mL/min BUN/Creatinine Ratio (14-18) Glucose (74-106) mg/dL POC Glucose 322 H 281 H (70-105) mg/dL Hemoglobin A1c (4.50-6.20) % Serum Osmolality (280-300) mosm/kg Lactic Acid Calcium (8.5-10.1) mg/dL Phosphorus (2.6-4.7) mg/dL Magnesium (1.8-2.4) mg/dl Total Bilirubin (0.2-1.0) mg/dL AST ALT Alkaline Phosphatase (46-116) U/L Troponin I (0.00-0.056) ng/mL C-Reactive Protein (<1.0) mg/dL Total Protein (6.4-8.2) g/dl Albumin (3.4-5.0) g/dl Globulin gm/dL Albumin/Globulin Ratio (1-2) Triglycerides (<150) mg/dL Cholesterol (<200) mg/dL LDL Cholesterol Direct (<100) mg/dL HDL Cholesterol (40-59) mg/dL Lipase (73-393) U/L Vitamin D 25-Hydroxy (30.0-100.0) ng/ml Free T4 0.91 (0.76-1.46) ng/dL TSH 3rd Generation 0.779 (0.358-3.74) uIU/mL Urine Color (Yellow) Urine Appearance (Clear) Urine pH (5.0-8.0) Ur Specific [place] (1.005-1.030) Urine Protein (Negative) Urine Glucose (UA) (Negative) Urine Ketones (Negative) Urine Occult Blood (Negative) Urine Nitrite (Negative) Urine Bilirubin (Negative) Urine Urobilinogen (0.2-1.0) Ur Leukocyte Esterase (Negative) Urine RBC (0-5) /hpf Urine WBC (0-5) /hpf Ur Epithelial Cells (0-5) /hpf Urine Bacteria (FEW) /hpf Urine Mucus (FEW) /hpf Ur Random Creatinine (30.0-125.0) mg/dL Ur Random Microalbumin (1.3-20.0) mg/L Microalb/Creat Ratio (0-30) mg/g Urine Opiates Screen (YASWSS=738) Ur Buprenorphine Scrn (CUTOFF=10) Ur Oxycodone Screen (DSZ0MX=726) Urine Methadone Screen (MBX1PI=581) Ur Propoxyphene Screen (UIAGWR=857) Ur Barbiturates Screen (LAVIHZ=841) Ur Tricyclics Screen (LRBNHQ=569) Ur Phencyclidine Scrn (CUTOFF=25) Ur Amphetamine Screen (CPOVJW=483) U Methamphetamines Scrn (WGVWPT=783) U Benzodiazepines Scrn (TPWBNB=029) U Cocaine Metab Screen (FOTIVF=630) U Marijuana (THC) Screen (CUTOFF=50) Ethyl Alcohol (0.00) gm% Ketones (0.0-0.3) mM 08/31/18 08/31/18 08/31/18 Range/Units 01:05 02:07 03:05 WBC (4.23-9.07) K/mm3 RBC (4.63-6.08) M/mm3 Hgb (13.7-17.5) gm/L Hct (40.1-51.0) % MCV (79.0-92.2) fl MCH (25.7-32.2) pg MCHC (32.2-35.5) g/dl RDW Std Deviation (35.1-43.9) fL Plt Count (163-337) K/mm3 MPV (9.4-12.3) fl Neutrophils % (Manual) (40-60) % Band Neutrophils % (0-10) % Lymphocytes % (Manual) (20-40) % Atypical Lymphs % % Monocytes % (Manual) (2-10) % Eosinophils % (Manual) (0.8-7.0) % Basophils % (Manual) (0.2-1.2) Platelet Estimate RBC Morph Comment Sodium (136-145) mEq/L Potassium (3.5-5.1) mEq/L Chloride (98-107) mEq/L Carbon Dioxide (21-32) mEq/L Anion Gap (5-15) BUN (7-18) mg/dL Creatinine (0.7-1.3) mg/dL Est Cr Clr Drug Dosing mL/min Estimated GFR (MDRD) (>60) mL/min BUN/Creatinine Ratio (14-18) Glucose (74-106) mg/dL POC Glucose 232 H 208 H (70-105) mg/dL Hemoglobin A1c (4.50-6.20) % Serum Osmolality (280-300) mosm/kg Lactic Acid Calcium (8.5-10.1) mg/dL Phosphorus (2.6-4.7) mg/dL Magnesium (1.8-2.4) mg/dl Total Bilirubin (0.2-1.0) mg/dL AST ALT Alkaline Phosphatase (46-116) U/L Troponin I (0.00-0.056) ng/mL C-Reactive Protein (<1.0) mg/dL Total Protein (6.4-8.2) g/dl Albumin (3.4-5.0) g/dl Globulin gm/dL Albumin/Globulin Ratio (1-2) Triglycerides 1070 H (<150) mg/dL Cholesterol 256 H (<200) mg/dL LDL Cholesterol Direct 79 (<100) mg/dL HDL Cholesterol 33.0 L (40-59) mg/dL Lipase (73-393) U/L Vitamin D 25-Hydroxy (30.0-100.0) ng/ml Free T4 (0.76-1.46) ng/dL TSH 3rd Generation (0.358-3.74) uIU/mL Urine Color (Yellow) Urine Appearance (Clear) Urine pH (5.0-8.0) Ur Specific [place] (1.005-1.030) Urine Protein (Negative) Urine Glucose (UA) (Negative) Urine Ketones (Negative) Urine Occult Blood (Negative) Urine Nitrite (Negative) Urine Bilirubin (Negative) Urine Urobilinogen (0.2-1.0) Ur Leukocyte Esterase (Negative) Urine RBC (0-5) /hpf Urine WBC (0-5) /hpf Ur Epithelial Cells (0-5) /hpf Urine Bacteria (FEW) /hpf Urine Mucus (FEW) /hpf Ur Random Creatinine (30.0-125.0) mg/dL Ur Random Microalbumin (1.3-20.0) mg/L Microalb/Creat Ratio (0-30) mg/g Urine Opiates Screen (AEODMA=003) Ur Buprenorphine Scrn (CUTOFF=10) Ur Oxycodone Screen (VHU0OS=763) Urine Methadone Screen (STI4LV=107) Ur Propoxyphene Screen (DWDQPJ=627) Ur Barbiturates Screen (PRNDJF=452) Ur Tricyclics Screen (WYNNZG=977) Ur Phencyclidine Scrn (CUTOFF=25) Ur Amphetamine Screen (FKMYXG=402) U Methamphetamines Scrn (WYNLLP=192) U Benzodiazepines Scrn (CLOBKO=167) U Cocaine Metab Screen (NQEFUV=308) U Marijuana (THC) Screen (CUTOFF=50) Ethyl Alcohol (0.00) gm% Ketones (0.0-0.3) mM 08/31/18 08/31/18 08/31/18 Range/Units 03:05 04:25 05:17 WBC (4.23-9.07) K/mm3 RBC (4.63-6.08) M/mm3 Hgb (13.7-17.5) gm/L Hct (40.1-51.0) % MCV (79.0-92.2) fl MCH (25.7-32.2) pg MCHC (32.2-35.5) g/dl RDW Std Deviation (35.1-43.9) fL Plt Count (163-337) K/mm3 MPV (9.4-12.3) fl Neutrophils % (Manual) (40-60) % Band Neutrophils % (0-10) % Lymphocytes % (Manual) (20-40) % Atypical Lymphs % % Monocytes % (Manual) (2-10) % Eosinophils % (Manual) (0.8-7.0) % Basophils % (Manual) (0.2-1.2) Platelet Estimate RBC Morph Comment Sodium 137 (136-145) mEq/L Potassium 3.2 L (3.5-5.1) mEq/L Chloride 105 (98-107) mEq/L Carbon Dioxide 17 L (21-32) mEq/L Anion Gap 18.2 H (5-15) BUN 11 (7-18) mg/dL Creatinine 1.0 (0.7-1.3) mg/dL Est Cr Clr Drug Dosing 95.70 mL/min Estimated GFR (MDRD) > 60 (>60) mL/min BUN/Creatinine Ratio 11.0 L (14-18) Glucose 208 H (74-106) mg/dL POC Glucose 217 H 166 H (70-105) mg/dL Hemoglobin A1c (4.50-6.20) % Serum Osmolality (280-300) mosm/kg Lactic Acid Calcium 8.7 (8.5-10.1) mg/dL Phosphorus (2.6-4.7) mg/dL Magnesium (1.8-2.4) mg/dl Total Bilirubin (0.2-1.0) mg/dL AST ALT Alkaline Phosphatase (46-116) U/L Troponin I (0.00-0.056) ng/mL C-Reactive Protein (<1.0) mg/dL Total Protein (6.4-8.2) g/dl Albumin (3.4-5.0) g/dl Globulin gm/dL Albumin/Globulin Ratio (1-2) Triglycerides (<150) mg/dL Cholesterol (<200) mg/dL LDL Cholesterol Direct (<100) mg/dL HDL Cholesterol (40-59) mg/dL Lipase (73-393) U/L Vitamin D 25-Hydroxy (30.0-100.0) ng/ml Free T4 (0.76-1.46) ng/dL TSH 3rd Generation (0.358-3.74) uIU/mL Urine Color (Yellow) Urine Appearance (Clear) Urine pH (5.0-8.0) Ur Specific [place] (1.005-1.030) Urine Protein (Negative) Urine Glucose (UA) (Negative) Urine Ketones (Negative) Urine Occult Blood (Negative) Urine Nitrite (Negative) Urine Bilirubin (Negative) Urine Urobilinogen (0.2-1.0) Ur Leukocyte Esterase (Negative) Urine RBC (0-5) /hpf Urine WBC (0-5) /hpf Ur Epithelial Cells (0-5) /hpf Urine Bacteria (FEW) /hpf Urine Mucus (FEW) /hpf Ur Random Creatinine (30.0-125.0) mg/dL Ur Random Microalbumin (1.3-20.0) mg/L Microalb/Creat Ratio (0-30) mg/g Urine Opiates Screen (YYBGNC=479) Ur Buprenorphine Scrn (CUTOFF=10) Ur Oxycodone Screen (EXT5TI=623) Urine Methadone Screen (QHX2HR=389) Ur Propoxyphene Screen (TTXICT=469) Ur Barbiturates Screen (RXDHRM=371) Ur Tricyclics Screen (MHTQLL=102) Ur Phencyclidine Scrn (CUTOFF=25) Ur Amphetamine Screen (LQHVID=574) U Methamphetamines Scrn (SBMHFB=918) U Benzodiazepines Scrn (XLTERE=377) U Cocaine Metab Screen (SXTTDQ=355) U Marijuana (THC) Screen (CUTOFF=50) Ethyl Alcohol (0.00) gm% Ketones (0.0-0.3) mM 08/31/18 08/31/18 08/31/18 Range/Units 06:10 06:59 07:00 WBC (4.23-9.07) K/mm3 RBC (4.63-6.08) M/mm3 Hgb (13.7-17.5) gm/L Hct (40.1-51.0) % MCV (79.0-92.2) fl MCH (25.7-32.2) pg MCHC (32.2-35.5) g/dl RDW Std Deviation (35.1-43.9) fL Plt Count (163-337) K/mm3 MPV (9.4-12.3) fl Neutrophils % (Manual) (40-60) % Band Neutrophils % (0-10) % Lymphocytes % (Manual) (20-40) % Atypical Lymphs % % Monocytes % (Manual) (2-10) % Eosinophils % (Manual) (0.8-7.0) % Basophils % (Manual) (0.2-1.2) Platelet Estimate RBC Morph Comment Sodium 138 (136-145) mEq/L Potassium 3.1 L (3.5-5.1) mEq/L Chloride 106 (98-107) mEq/L Carbon Dioxide 19 L (21-32) mEq/L Anion Gap 16.1 H (5-15) BUN 10 (7-18) mg/dL Creatinine 0.9 (0.7-1.3) mg/dL Est Cr Clr Drug Dosing 106.33 mL/min Estimated GFR (MDRD) > 60 (>60) mL/min BUN/Creatinine Ratio 11.1 L (14-18) Glucose 157 H (74-106) mg/dL POC Glucose 164 H 149 H (70-105) mg/dL Hemoglobin A1c (4.50-6.20) % Serum Osmolality (280-300) mosm/kg Lactic Acid Calcium 8.5 (8.5-10.1) mg/dL Phosphorus (2.6-4.7) mg/dL Magnesium (1.8-2.4) mg/dl Total Bilirubin (0.2-1.0) mg/dL AST ALT Alkaline Phosphatase (46-116) U/L Troponin I (0.00-0.056) ng/mL C-Reactive Protein (<1.0) mg/dL Total Protein (6.4-8.2) g/dl Albumin (3.4-5.0) g/dl Globulin gm/dL Albumin/Globulin Ratio (1-2) Triglycerides (<150) mg/dL Cholesterol (<200) mg/dL LDL Cholesterol Direct (<100) mg/dL HDL Cholesterol (40-59) mg/dL Lipase (73-393) U/L Vitamin D 25-Hydroxy (30.0-100.0) ng/ml Free T4 (0.76-1.46) ng/dL TSH 3rd Generation (0.358-3.74) uIU/mL Urine Color (Yellow) Urine Appearance (Clear) Urine pH (5.0-8.0) Ur Specific [place] (1.005-1.030) Urine Protein (Negative) Urine Glucose (UA) (Negative) Urine Ketones (Negative) Urine Occult Blood (Negative) Urine Nitrite (Negative) Urine Bilirubin (Negative) Urine Urobilinogen (0.2-1.0) Ur Leukocyte Esterase (Negative) Urine RBC (0-5) /hpf Urine WBC (0-5) /hpf Ur Epithelial Cells (0-5) /hpf Urine Bacteria (FEW) /hpf Urine Mucus (FEW) /hpf Ur Random Creatinine (30.0-125.0) mg/dL Ur Random Microalbumin (1.3-20.0) mg/L Microalb/Creat Ratio (0-30) mg/g Urine Opiates Screen (FGGGXO=464) Ur Buprenorphine Scrn (CUTOFF=10) Ur Oxycodone Screen (IDY2EE=782) Urine Methadone Screen (DKW3HN=385) Ur Propoxyphene Screen (OJDKML=201) Ur Barbiturates Screen (PIVGUA=864) Ur Tricyclics Screen (JVLNRF=043) Ur Phencyclidine Scrn (CUTOFF=25) Ur Amphetamine Screen (QHIZBK=547) U Methamphetamines Scrn (ETQSOD=117) U Benzodiazepines Scrn (SRROVU=054) U Cocaine Metab Screen (VMVAOU=432) U Marijuana (THC) Screen (CUTOFF=50) Ethyl Alcohol (0.00) gm% Ketones (0.0-0.3) mM 08/31/18 Range/Units 08:20 WBC (4.23-9.07) K/mm3 RBC (4.63-6.08) M/mm3 Hgb (13.7-17.5) gm/L Hct (40.1-51.0) % MCV (79.0-92.2) fl MCH (25.7-32.2) pg MCHC (32.2-35.5) g/dl RDW Std Deviation (35.1-43.9) fL Plt Count (163-337) K/mm3 MPV (9.4-12.3) fl Neutrophils % (Manual) (40-60) % Band Neutrophils % (0-10) % Lymphocytes % (Manual) (20-40) % Atypical Lymphs % % Monocytes % (Manual) (2-10) % Eosinophils % (Manual) (0.8-7.0) % Basophils % (Manual) (0.2-1.2) Platelet Estimate RBC Morph Comment Sodium (136-145) mEq/L Potassium (3.5-5.1) mEq/L Chloride (98-107) mEq/L Carbon Dioxide (21-32) mEq/L Anion Gap (5-15) BUN (7-18) mg/dL Creatinine (0.7-1.3) mg/dL Est Cr Clr Drug Dosing mL/min Estimated GFR (MDRD) (>60) mL/min BUN/Creatinine Ratio (14-18) Glucose (74-106) mg/dL POC Glucose 147 H (70-105) mg/dL Hemoglobin A1c (4.50-6.20) % Serum Osmolality (280-300) mosm/kg Lactic Acid Calcium (8.5-10.1) mg/dL Phosphorus (2.6-4.7) mg/dL Magnesium (1.8-2.4) mg/dl Total Bilirubin (0.2-1.0) mg/dL AST ALT Alkaline Phosphatase (46-116) U/L Troponin I (0.00-0.056) ng/mL C-Reactive Protein (<1.0) mg/dL Total Protein (6.4-8.2) g/dl Albumin (3.4-5.0) g/dl Globulin gm/dL Albumin/Globulin Ratio (1-2) Triglycerides (<150) mg/dL Cholesterol (<200) mg/dL LDL Cholesterol Direct (<100) mg/dL HDL Cholesterol (40-59) mg/dL Lipase (73-393) U/L Vitamin D 25-Hydroxy (30.0-100.0) ng/ml Free T4 (0.76-1.46) ng/dL TSH 3rd Generation (0.358-3.74) uIU/mL Urine Color (Yellow) Urine Appearance (Clear) Urine pH (5.0-8.0) Ur Specific [place] (1.005-1.030) Urine Protein (Negative) Urine Glucose (UA) (Negative) Urine Ketones (Negative) Urine Occult Blood (Negative) Urine Nitrite (Negative) Urine Bilirubin (Negative) Urine Urobilinogen (0.2-1.0) Ur Leukocyte Esterase (Negative) Urine RBC (0-5) /hpf Urine WBC (0-5) /hpf Ur Epithelial Cells (0-5) /hpf Urine Bacteria (FEW) /hpf Urine Mucus (FEW) /hpf Ur Random Creatinine (30.0-125.0) mg/dL Ur Random Microalbumin (1.3-20.0) mg/L Microalb/Creat Ratio (0-30) mg/g Urine Opiates Screen (GCMGSX=952) Ur Buprenorphine Scrn (CUTOFF=10) Ur Oxycodone Screen (MPT2XX=321) Urine Methadone Screen (GPH8UD=781) Ur Propoxyphene Screen (WUQSBY=446) Ur Barbiturates Screen (EIYTJS=882) Ur Tricyclics Screen (QKJJHQ=926) Ur Phencyclidine Scrn (CUTOFF=25) Ur Amphetamine Screen (ZUBJVI=577) U Methamphetamines Scrn (ITTIQC=505) U Benzodiazepines Scrn (UEUIYN=161) U Cocaine Metab Screen (RFWGEL=916) U Marijuana (THC) Screen (CUTOFF=50) Ethyl Alcohol (0.00) gm% Ketones (0.0-0.3) mM Med Orders - Current: Current Medications Acetaminophen (Tylenol) 650 mg PO Q4H PRN PRN Reason: Pain (Mild 1-3)/fever Hydrocodone Bitart/Acetaminophen ([place] 325-5 Mg) 1 tab PO Q4H PRN PRN Reason: Pain (moderate 4-6) Albuterol/Ipratropium (Duoneb 3.0-0.5 Mg/3 Ml) 3 ml NEB Q4H PRN PRN Reason: Shortness Of Breath/wheezing Aspirin (Aspirin) 81 mg PO DAILY [facility] Last Admin: 08/31/18 08:25 Dose: 81 mg Bisacodyl (Dulcolax) 5 mg PO DAILY PRN PRN Reason: Constipation Cholecalciferol (Vitamin D3) 5,000 unit PO DAILY [facility] Last Admin: 08/31/18 08:25 Dose: 5,000 unit Docusate Sodium (Colace) 100 mg PO BID PRN PRN Reason: Constipation Hydralazine HCl (Apresoline) 20 mg IVPUSH Q4H PRN PRN Reason: Hypertension Hydromorphone HCl (Dilaudid) 0.25 mg IVPUSH Q2H PRN PRN Reason: Pain (severe 7-10) Insulin Human Regular 100 unit (/ Sodium Chloride) 100 mls @ 6 mls/hr IV ASDIRECTED [facility]; Protocol Last Admin: 08/30/18 23:00 Dose: 6 units/hr, 6 mls/hr Dextrose/Sodium Chloride (Dextrose 5%-Normal Saline) 1,000 mls @ 150 mls/hr IV ASDIRECTED [facility] Last Admin: 08/31/18 01:23 Dose: 150 mls/hr Insulin Glargine (Lantus) 25 unit SUBCUT BID [facility] Last Admin: 08/31/18 09:38 Dose: 25 units Insulin Human Lispro (Humalog) 0 unit SUBCUT QIDACANDBED [facility]; Protocol Lisinopril (Prinivil) 10 mg PO DAILY [facility] Last Admin: 08/31/18 08:25 Dose: 10 mg Lorazepam (Ativan) 2 mg IVPUSH Q4H PRN PRN Reason: Seizures Magnesium Sulfate (Pharmacy To Dose - Magnesium Replacement) 1 dose .XX ASDIRECTED [facility] Metoprolol Tartrate (Lopressor) 5 mg IVPUSH Q4H PRN PRN Reason: Tachycardia Miscellaneous Information (Remove Patch) 1 ea TRDERM DAILY [facility] Last Admin: 08/31/18 08:32 Dose: Not Given Nicotine (Habitrol) 21 mg TRDERM DAILY [facility] Last Admin: 08/31/18 08:31 Dose: Not Given Ondansetron HCl (Zofran) 4 mg IV Q6H PRN PRN Reason: Nausea/Vomiting Last Admin: 08/31/18 08:21 Dose: 4 mg Polyethylene Glycol (Miralax) 17 gm PO DAILY PRN PRN Reason: Constipation Potassium Chloride (Pharmacy To Dose - Potassium Replacement) 1 dose .XX ASDIRECTED [facility] Potassium Chloride (Klor-Con M20) 40 meq PO Q4H [facility] Stop: 08/31/18 11:46 Last Admin: 08/31/18 08:25 Dose: 40 meq Rosuvastatin Calcium (Crestor) 20 mg PO DAILY [facility] Last Admin: 08/31/18 08:31 Dose: 20 mg Senna/Docusate Sodium (Senna Plus) 1 tab PO BID PRN PRN Reason: Constipation Temazepam (Restoril) 15 mg PO BEDTIME PRN PRN Reason: Sleep Last Admin: 08/30/18 23:18 Dose: 15 mg Discontinued Medications Sodium Chloride (Normal Saline) 1,000 mls @ 999 mls/hr IV ONETIME ONE Stop: 08/30/18 19:10 Last Admin: 08/30/18 18:38 Dose: 999 mls/hr Sodium Chloride (Normal Saline) 900 mls @ 999 mls/hr IV .BOLUS ONE Stop: 08/30/18 19:04 Last Admin: 08/30/18 18:38 Dose: 999 mls/hr Sodium Chloride (Normal Saline) 1,000 mls @ 999 mls/hr IV ASDIRECTED JUAN Last Admin: 08/30/18 19:42 Dose: 999 mls/hr Sodium Chloride (Normal Saline) 1,000 mls @ 500 mls/hr IV .BOLUS ONE Stop: 08/30/18 20:09 Last Admin: 08/30/18 20:42 Dose: Not Given Lactated Ringer's (Ringers, Lactated) 1,000 mls @ 999 mls/hr IV .BOLUS ONE Stop: 08/30/18 20:32 Last Admin: 08/30/18 20:19 Dose: 999 mls/hr Lactated Ringer's (Ringers, Lactated) 1,000 mls @ 999 mls/hr IV .BOLUS ONE Stop: 08/30/18 20:32 Last Admin: 08/30/18 20:20 Dose: 999 mls/hr Insulin Human Regular 100 unit (/ Sodium Chloride) 100 mls @ 536.14 mls/hr IV TITRATE JUAN; Protocol Sodium Chloride (Normal Saline) 1,000 mls @ 150 mls/hr IV ASDIRECTED JUAN Last Admin: 08/30/18 23:18 Dose: 150 mls/hr Insulin Glargine (Lantus) 25 unit SUBCUT BIDAC [facility] Insulin Human Regular (Humulin R) 9 unit IVPUSH ONETIME ONE Stop: 08/30/18 18:58 Last Admin: 08/30/18 19:13 Dose: 9 units Magnesium Oxide (Magnesium Oxide) 400 mg PO ONETIME ONE Stop: 08/30/18 23:01 Last Admin: 08/30/18 22:56 Dose: 400 mg - Exam Quality Assessment: Reports: DVT Prophylaxis General: Reports: Alert, Oriented, Cooperative, No Acute Distress HEENT: Reports: Pupils Equal, Pupils Reactive, EOMI, Mucous Membr. Moist/Poth Neck: Reports: Supple, Trachea Midline, No JVD Lungs: Reports: Clear to Auscultation, Normal Respiratory Effort Cardiovascular: Reports: Regular Rate, Regular Rhythm GI/Abdominal Exam: Normal Bowel Sounds, Soft, Non-Tender, No Organomegaly, No Distention (Male) Exam: Deferred Rectal (Males) Exam: Deferred Back Exam: Reports: Normal Inspection, Full Range of Motion Extremities: Normal Inspection, Normal Range of Motion, Non-Tender, No Pedal Edema, Normal Capillary Refill Skin: Reports: Warm, Dry, Intact Neurological: Reports: No New Focal Deficit Psy/Mental Status: Reports: Alert, Normal Affect, Normal Mood
[2018-08-31] MEDS ORDERED: Insulin Lispro 100 Units/ML 3 ML Vial SUBCUT SCH ×2 (11:00)
[2018-08-31 11:52] VITALS: BP 137/84
== END 2018-08-31 15:17 | disposition home or self-care (01) | DRG 638 ==
LOC: JD.ED 17:59 → JD.ICU 21:53
PROVIDERS: ADMIT Internal Medicine; ATTEND Internal Medicine
DX: E13.10 Other specified diabetes mellitus with ketoacidosis without coma (principal); E87.1 Hypo-osmolality and hyponatremia; F17.210 Nicotine dependence, cigarettes, uncomplicated; E78.5 Hyperlipidemia, unspecified; E55.9 Vitamin D deficiency, unspecified; E87.5 Hyperkalemia; N28.9 Disorder of kidney and ureter, unspecified
CPT/HCPCS: 36415; 71045; 71045-26; 80048; 80053; 80061; 80306; 81001; 82009; 82043; 82306; 82947; 82962; 83036; 83690; 83735; 83930; 84100; 84439; 84443; 84484; 85007; 85027; 86140; 87040; 87086; 93005; 93010; 96360; 96361; 96374; 99285; 99285-25; A9270-GY; G0480; J1815-GY; J2405; J7030; J7040; J7042; J7120